=== PATIENT | female | born 1995 | race Caucasian/White ===

== ENCOUNTER 2020-03-05 16:43 | Emergency (ER) | payer OTHER ==
[2020-03-05 17:38] VITALS: BP 108/74
--- NOTE | 2020-03-05 19:57 | ER Document Report ---
ED Medical Screen (RME) - General Chief Complaint: Chest Pain Stated Complaint: CHEST PAIN Time Seen by Provider: 03/05/20 19:51 Mode of Arrival: Ambulatory Information source: Patient Notes: HPI; 24-year-old female presents to the emergency room complaining of upper back pain, chest pain that radiates into her left arm that started earlier today. States about 1 PM this afternoon she went to make a turn and had a sudden sharp stabbing pain in the middle of her back then developed chest pain that radiated into her left arm. States she was given 1 baby aspirin at work without relief. Still having the pain describes it as a sharp burning sensation. No cardiac history. Some nausea but no vomiting. No diaphoresis. PE: Alert and oriented x3. Lungs: Clear to auscultation without rales, rhonchi, wheezes. Heart: Regular rate rhythm without murmurs, rubs, gallops. I have greeted and performed a rapid initial assessment of this patient. A comprehensive ED assessment and evaluation of the patient, analysis of test results and completion of the medical decision making process will be conducted by additional ED providers. I have specifically instructed the patient or family members with the patient to immediately return to any nursing staff should anything change in the patient's condition or with their chief complaint. TRAVEL OUTSIDE OF THE [place] IN LAST 30 DAYS: No - Related Data Allergies/Adverse Reactions: No Known Allergies Allergy (Verified 03/05/20 19:51) Past Medical History - Social History Frequency of alcohol use: Social Drug Abuse: None Physical Exam - Vital signs Vitals: Temp Pulse Resp BP Pulse Ox 98.2 F 66 17 108/74 98 03/05/20 17:34 03/05/20 17:34 03/05/20 17:34 03/05/20 17:34 03/05/20 17:34 Course - Vital Signs Vital signs: Temp Pulse Resp BP Pulse Ox 98.2 F 66 17 108/74 98 03/05/20 17:34 03/05/20 17:34 03/05/20 17:34 03/05/20 17:34 03/05/20 17:34
[2020-03-05 20:46] LABS: ABSOLUTE EOSINOPHILS # (AUTO) 0.1 10^3/uL (0.0-0.6); ABSOLUTE LYMPHOCYTES (AUTO) 1.8 10^3/uL (0.5-4.7); ABSOLUTE MONOCYTES (AUTO) 0.3 10^3/uL (0.1-1.4); ABSOLUTE NEUT (AUTO) 3.3 10^3/uL (1.7-8.2); BASOPHILS % (AUTO) 0.6 % (0-2); EOSINOPHILS % (AUTO) 2.1 % (0-6); HEMATOCRIT 37.9 % (36.0-47.0); HEMOGLOBIN 12.8 g/dL (12.0-15.5); LYMPHOCYTES % (AUTO) 32.3 % (13-45); MEAN CORPUSCULAR HEMOGLOBIN 28.5 pg (27.0-33.4); MEAN CORPUSCULAR HGB CONC 33.7 g/dL (32.0-36.0); MEAN CORPUSCULAR VOLUME 84 fl (80-97); PLATELET COUNT 205 10^3/uL (150-450); RED BLOOD COUNT 4.48 10^6/uL (3.72-5.28); RED CELL DISTRIBUTION WIDTH 14.4 % (11.5-14.0); TOTAL CELLS COUNTED % (AUTO) 100 %; WHITE BLOOD COUNT 5.6 10^3/uL (4.0-10.5)
--- NOTE | 2020-03-05 21:01 | RADIOLOGY REPORT (SQ) ---
EXAM DESCRIPTION: Site: CHEST 2 VIEWS RP: XR CHEST 2 VIEWS Views: 2 CLINICAL HISTORY: 24 years Female; chest pain; COMPARISON: None. FINDINGS: Lungs: Lungs are clear, with no focal infiltrate, pneumothorax, or pleural effusion. Mediastinum: Mediastinum is within normal limits for this positioning. Bones: Bony structures are unremarkable. IMPRESSION: 1. No acute cardiothoracic abnormality.
--- NOTE | 2020-03-05 21:01 | RADIOLOGY REPORT (SQ) ---
EXAM DESCRIPTION: XR THORACIC SPINE 2 VIEWS COMPLETED DATE/TME: 03/05/2020 20:16 CLINICAL HISTORY: 24 years, Female, back pain COMPARISON: None. TECHNIQUE: AP and lateral views FINDINGS: No evidence for fracture dislocation. No suspicious disc space abnormality or abnormal bony lesion. No suspicious paraspinal soft tissue mouth is. IMPRESSION: Normal two-view thoracic spine study.
[2020-03-05 21:03] LABS: ALBUMIN 4.5 g/dL (3.5-5.0); ALKALINE PHOSPHATASE 61 U/L (38-126); ANION GAP 5 (5-19); ASPARTATE AMINO TRANSFERASE 22 U/L (14-36); BILIRUBIN,DIRECT 0.1 mg/dL (0.0-0.4); BILIRUBIN,TOTAL 0.3 mg/dL (0.2-1.3); BLOOD UREA NITROGEN 15 mg/dL (7-20); CALCIUM 9.5 mg/dL (8.4-10.2); CARBON DIOXIDE 27 mmol/L (22-30); CHLORIDE 104 mmol/L (98-107); GLUCOSE 95 mg/dL (75-110); POTASSIUM 4.2 mmol/L (3.6-5.0); TOTAL PROTEIN 7.3 g/dL (6.3-8.2)
--- NOTE | 2020-03-05 23:54 | ER Document Report ---
ED Cardiac - General Chief Complaint: Chest Pain Stated Complaint: CHEST PAIN Time Seen by Provider: 03/05/20 19:51 Primary Care Provider: SCOTTY FREITAS MD [ACTIVE PROVISIONAL STAFF] - Follow up as needed Mode of Arrival: Ambulatory TRAVEL OUTSIDE OF THE [place] IN LAST 30 DAYS: No - HPI Patient complains to provider of: Chest pain Notes: Patient here with complaints of left-sided chest pain. 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 She states that she turned in her chair and had a sudden sharp pain in her left chest that radiated around to the left shoulder blade. She denies any shortness of breath, but states that it hurt when she took a deep breath initially. No diaphoresis. She denies any injury. She does have a history of mitral valve prolapse. She recently moved here from [place], she does not have a primary care doctor or a assembler finger buffs here. She denies any history of hypertension, high cholesterol, diabetes, smoking, CAD. She denies any recent long trips or surgeries, leg pain, hormone use, cancer, history of DVT or PE. No rashes. No abdominal pain. No nausea, vomiting, diarrhea. Ches t pain has resolved, she still has some mild left scapular pain at this time. She denies any other complaints at this time. - Related Data Allergies/Adverse Reactions: No Known Allergies Allergy (Verified 03/05/20 19:51) Past Medical History - General Information source: Patient - Social History Smoking Status: Never Smoker Frequency of alcohol use: Social Drug Abuse: None Family History: Reviewed & Not Pertinent Patient has homicidal ideation: No Review of Systems - Review of Systems -: Yes All other systems reviewed and negative Physical Exam - Vital signs Vitals: Temp Pulse Resp BP Pulse Ox 98.2 F 66 17 108/74 98 03/05/20 17:34 03/05/20 17:34 03/05/20 17:34 03/05/20 17:34 03/05/20 17:34 - Notes Notes: GENERAL: alert, cooperative, nontoxic, no distress. HEAD: normocephalic, atraumatic EYES: conjunctiva pink without discharge, no external redness or swelling. EARS: no external swelling, no external redness NOSE: atraumatic, no external swelling MOUTH/THROAT: mucous membranes moist and pink, posterior pharynx without erythema, swelling, exudate. No trismus or drooling. NECK: soft, supple, full range of motion, no meningismus. CHEST: no distress, lungs clear and equal throughout. No wheezing, rales, rhonchi. CARDIAC: regular rate and rhythm, no murmur ABDOMEN: Soft, nontender to palpation. BACK: full range of motion EXTREMITIES: full range of motion of all extremities. No redness, no swelling. NEURO: alert and oriented x 3, no focal deficits, full range of motion of all extremities. PYSCH: appropriate mood, affect. Patient is cooperative. SKIN: pink, warm, dry, no rash. Course - Re-evaluation Re-evalutation: 03/05/20 23:52 Patient resting comfortably at this time. Chest pain has resolved. I gone over results with the patient. Questions answered. Will discharge home. 03/06/20 00:01 Patient is nontoxic-appearing stable vitals. Here with complaints of left-sided chest pain and back pain. The patient states that she turned in a chair at work when she started to get the chest pain that radiated around to the back. Nothing seems to make the pain better or worse. She denies any fever. She denies any significant shortness of breath. She states the chest pain has resolved at this time. Heart score is 0. Patient has no CAD risk factors. Symptoms are very atypical for ACS. Patient has a EKG that shows no ischemic changes, she has a negative troponin and a normal chest x-ray. Patient is noted to have a first-degree AV block on her EKG. She does have a history of mitral valve prolapse. She will be given a referral to cardiology for follow-up. Patient has no pulmonary embolism risk factors and is PERC rule negative for pulmonary embolism. PE is very unlikely in this patient. Pain seems to be musculoskeletal in nature. Chest pain has resolved. At this point believe the patient to be discharged home with a referral to cardiology and instructions to get established with primary care. Follow-up sooner for worsening pain, fever, chest pain or shortness of breath, persistent vomiting, or any further concerns. The patient's emergency department workup and current diagnosis were explained to the patient and or family. Follow-up instructions were provided. Medications if prescribed were discussed. Instructions for when to return to the emergency department including specific worrisome symptoms were discussed with the patient and/or family. - Vital Signs Vital signs: Temp Pulse Resp BP Pulse Ox 98.2 F 66 17 108/74 98 03/05/20 17:34 03/05/20 17:34 03/05/20 17:34 03/05/20 17:34 03/05/20 17:34 - Laboratory Results Result Diagrams: 03/05/20 20:25 03/05/20 20:25 Laboratory Results Interpreted: 03/05/20 03/05/20 20:25 20:25 RDW 14.4 H Sodium 136.4 L Critical Laboratory Results Reviewed: No Critical Results - Radiology Results Critical Radiology Results Reviewed: No Critical Results - EKG Interpretation by Me EKG shows normal: Sinus rhythm Rate: Normal Heart block present: 1st Degree Additional EKG results interpreted by me: 03/05/20 23:59 Sinus rhythm ventricular rate of 71, parable of 232, QS duration 104, QT interval 3 is 96, no ST elevation or depression. No STEMI. First-degree AV block. Discharge - Discharge Clinical Impression: 1st degree AV block Chest pain Qualifiers: Chest pain type: unspecified Qualified Code(s): R07.9 - Chest pain, unspecified Back pain Qualifiers: Back pain location: thoracic back pain Chronicity: acute Back pain laterality: left Qualified Code(s): M54.6 - Pain in thoracic spine Condition: Stable Disposition: HOME, SELF-CARE Instructions: Chest Pain of Unclear Cause ([facility]) Additional Instructions: Take Tylenol Motrin as needed for pain. Drink plenty of fluids. Establish with primary care and cardiology at the next available appointment. Follow-up sooner for worsening pain, high fever, persistent vomiting, significant shortness of breath, or for any further concerns. Referrals: SCOTTY FREITAS MD [ACTIVE PROVISIONAL STAFF] - Follow up as needed
--- NOTE | 2020-03-05 23:57 | EKG REPORT ---
SEVERITY:- ABNORMAL ECG - SINUS RHYTHM FIRST DEGREE AV BLOCK : Confirmed by: Daya Rainey 05-Mar-2020 23:55:28
== END 2020-03-05 23:55 | disposition home or self-care (01) ==
LOC: ER 16:43
DX: R07.9 Chest pain, unspecified (principal); M54.6 Pain in thoracic spine; M89.8X1 Other specified disorders of bone, shoulder; I44.0 Atrioventricular block, first degree; Z86.79 Personal history of other diseases of the circulatory system
CPT/HCPCS: 36415; 71046; 72070; 80053; 84484; 84703; 85025; 93005; 93010; 99285